=== PATIENT | female | born 1975 | race Caucasian/White ===

== ENCOUNTER 2017-06-18 16:54 | Emergency (ER) | payer OTHER ==
[2017-06-18 18:42] VITALS: BP 136/86
--- NOTE | 2017-06-18 20:15 | ED Physician Documentation ---
Sore Throat/Dental Pain - HPI Stated Complaint: R Jaw pain Chief Complaint: Dental Pain Onset: days ago (last week) Context: Abscess Further Comments: yes (42 year old female patient presents with right lower molar pain, states she began having pain last week, states swelling and pain has become much worse over past 24 hours. No OTC medications prior to arrival. Report round of amoxil and steriod last week for bronchitis. States she cannot see her dentist for 4 weeks. LMP - now.) - ROS CONST: no problems CVS/RESP: none GI/: denies: nausea, vomiting MS/SKIN/LYMPH: denies: muscle aches, rash, leg swelling, ankle swelling, other NEURO/PSYCH: none - PAST HX Past History: none Other History: none Immunizations: UTD Allergies/Adverse Reactions: Allergies Allergy/AdvReac Type Severity Reaction Status Date / Time No Known Allergies Allergy Verified 06/18/17 17:19 Home Medications: Ambulatory Orders Medication Instructions Recorded Clindamycin HCl [Cleocin] 300 mg PO QID #40 capsule 06/18/17 Ketorolac Tromethamine [Toradol] 10 mg PO TID #15 tablet 06/18/17 - SOCIAL HX Smoking History: cigarettes - FAMILY HX Family History: No - VITAL SIGNS Vital Signs: Vital Signs Temp Pulse Resp BP Pulse Ox 98.7 F 82 20 136/86 98 06/18/17 18:40 06/18/17 18:40 06/18/17 18:40 06/18/17 18:40 06/18/17 18:40 - REVIEWED ASSESSMENTS Nursing Assessment Reviewed: Yes Vitals Reviewed: Yes Progress - Progress Progress: Reviewed discharge instructions with patient. Patient drove to Er, does not want injection. Dental Pain Physical Exam - EXAM General Appearance: moderate distress Head/Neck: head nml inspection, trachea midline, mandibular swelling (R) Mouth/Throat: lips nml, pharynx nml, voice nml, no drooling, no air way problems , no thrush, membranes nml, gum swelling around teeth (right lower molars, decay to gumline; signficant edema around #46) Respiratory: no resp. distress CVS: reg. rate & rhythm Skin: normal color, warm/dry, NR, INT, PAL, DR Neuro/Psych: No: weakness Discharge Clincal Impression: Dental caries, Abscess Prescriptions: Clindamycin HCl [Cleocin] 300 mg PO QID #40 capsule Ketorolac Tromethamine [Toradol] 10 mg PO TID #15 tablet Additional Instructions: Tylenol 650-1000mg every 4 hours as needed for pain, limit your dose to 4G in 24 hours. Over the counter [employer] - follow package directions. 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 Do not take ibuprofen, aleve, naproxen or any other NSAID while you are on toradol See your dentist as soon as possible Condition: Stable Disposition: 01 HOME, SELF-CARE Decision to Admit: NO Decision Time: 18:30
== END 2017-06-18 18:40 | disposition home or self-care (01) ==
LOC: ED 16:54
DX: K02.9 Dental caries, unspecified (principal); K04.7 Periapical abscess without sinus
CPT/HCPCS: 99283

== ENCOUNTER 2018-09-04 11:18 | Emergency (ER) | payer OTHER | END 2018-09-04 11:37 | disposition home or self-care (01) | LOC: ED 11:18 | DX: J01.90 Acute sinusitis, unspecified (principal); Z72.0 Tobacco use | CPT/HCPCS: 99281; 99282 ==

== ENCOUNTER 2019-06-22 22:19 | Emergency (ER) | payer OTHER ==
--- NOTE | 2019-06-22 22:37 | ED Physician Documentation ---
Skin Rash - HISTORIAN Historian: patient - HPI Stated Complaint: rash x 3 weeks Chief Complaint: Skin Rash Additional Information: Patient presents to ED with a 3 week history of rash. Patient states the rash started on her low back and now has spread to her abdomen. Onset: days ago (21) Timing: worse Duration: persistent since Location: trunk (back, gluteal folds, under both breast) Quality: itchy, burning Where: home Context: Medication Exposure: none Context: Food Exposure: none - ROS CONST: none CVS/RESP: none EYES/ENT: none GI/: none MS/SKIN/LYMPH: none NEURO/PSYCH: none - PAST HX Past History: none Other History: none Allergies/Adverse Reactions: Allergies Allergy/AdvReac Type Severity Reaction Status Date / Time No Known Allergies Allergy Verified 06/22/19 22:38 Home Medications: Ambulatory Orders Medication Instructions Recorded Nystatin Powder [Nystop] 60 gm TP Q8 #1 bottle 06/22/19 - SOCIAL HX Smoking History: cigarettes Alcohol Use: none Drug Use: none - FAMILY HX Family History: none - VITAL SIGNS Vital Signs: Vital Signs Temp Pulse Resp BP Pulse Ox 148/72 02/22/19 20:33 - REVIEWED ASSESSMENTS Nursing Assessment Reviewed: Yes Vitals Reviewed: Yes ED Results Lab/Radiology - Orders Orders: ED Orders Category Date Time Status Chem Sticks Med 06/23/19 07:30 Ordered 1 each [facility] Skin Rash Physical Exam - EXAM General Appearance: no acute distress, alert Skin: warm,dry, skin rash, erythema Location: trunk Character: maculopapular, erythematous Symptoms: warmth, tenderness, induration, well defined border Extremities: non-tender EENT: eyes nml inspection Neck: trachea midline Respiratory: no resp distress, chest non-tender, breath sounds normal CVS: reg. rate & rhythm, heart sounds nml Abdomen: non-tender Neuro/Psych: oriented x3, motor nml, mood/affect nml Discharge Clincal Impression: Candidiasis of skin Referrals: Tiffanie Ray PRN [Primary Care Provider] - 2 Days Additional Instructions: 1. Wash area twice daily with tea tree oil soap 2. Apply Nystatin powder to affected areas every 8 hours x 4 weeks. Rash may disappear, however, keep apply powder for full 4 weeks 3. Topical or oral steroids will make yeast infections worse. 4. Once rash heals, tea tree oil applied daily may be beneficial to prevent future infection 5. Follow up with PCP within 1 week. Discuss further investigation of diabetes 6. Return to ER for new or worsening symptoms Condition: Stable Disposition: 01 HOME, SELF-CARE Decision to Admit: NO Date of Decison to Admit: 06/22/19 Decision Time: 22:45
[2019-06-22 22:38] VITALS: BP 151/69
[2019-06-22] MEDS: FLUCONAZOLE 150 MG TABLET PO ONE (22:48)
== END 2019-06-22 22:48 | disposition home or self-care (01) ==
LOC: ED 22:19
DX: B37.2 Candidiasis of skin and nail (principal)
CPT/HCPCS: 99282; 99283